=== PATIENT | female | born 1945 | race Two or more races ===

== ENCOUNTER 2018-10-10 16:01 | Emergency (ER) | payer OTHER ==
[~2018-10-10] VITALS: Ht 162.6 cm; Wt 76.7 kg
[~2018-10-10 16:01] MED LIST: ASA81 MG PO; NO; SIMVASTATIN5 MG PO
== END 2018-10-10 18:01 | disposition home or self-care (01) ==
LOC: ER 16:01
DX: R10.13 Epigastric pain (principal)